=== PATIENT | female | born 1995 | race Caucasian/White ===

== ENCOUNTER 2020-05-09 20:21 | Emergency (ER) | payer BC ==
[~2020-05-09] VITALS: Ht 154.9 cm; Wt 70.0 kg
[2020-05-09 20:38] VITALS: BP 123/58
[2020-05-09] MEDS ORDERED: TRAM-48 PO (20:50)
[2020-05-09] MEDS ORDERED: CLIN150C15 PO (20:50)
--- NOTE | 2020-05-09 20:51 | PHYS DOC ---
General Adult EDM: Chief Complaint: DENTAL PROBLEM HPI: HPI: Patient is a 25 year old female with medical history of GERD presents with a chief complaint of dental pain. Patient states she has had dental pain right upper canine for approximately 2 weeks. Pain intensified yesterday and has become more constant. Patient previously evaluated by dentist was advised she needs root canal. Patient was previously placed on amoxicillin but could not finish due to upset stomach. Patient states she has a dentist appointment next week. Prior to arrival patient states she took Tylenol with no relief. Denies associated symptoms include headache. Patient is afebrile. Review of Systems: Review of Systems: Constitutional: Denies fever or chills. [] Eyes: Denies change in visual acuity. [] HENT: Denies nasal congestion or sore throat. [Positive dental pain] Respiratory: Denies cough or shortness of breath. [] Cardiovascular: Denies chest pain or edema. [] GI: Denies abdominal pain, nausea, vomiting, bloody stools or diarrhea. [] : Denies dysuria. [] Musculoskeletal: Denies back pain or joint pain. [] Integument: Denies rash. [] Neurologic: Denies headache, focal weakness or sensory changes. [] Endocrine: Denies polyuria or polydipsia. [] Lymphatic: Denies swollen glands. [] Psychiatric: Denies depression or anxiety. [] Heart Score: Risk Factors: Risk Factors: DM, Current or recent (<one month) smoker, HTN, HLP, family history of CAD, obesity. Risk Scores: Score 0 - 3: 2.5% MACE over next 6 weeks - Discharge Home Score 4 - 6: 20.3% MACE over next 6 weeks - Admit for Clinical Observation Score 7 - 10: 72.7% MACE over next 6 weeks - Early Invasive Strategies Physical Exam: PE: Constitutional: Well developed, well nourished, no acute distress, non-toxic appearance. [] HENT: Normocephalic, atraumatic, bilateral external ears normal, oropharynx moist, no oral exudates, nose normal. [Dental carry tooth decay tooth #9, no surround swelling or abscess] Eyes: PERRLA, EOMI, conjunctiva normal, no discharge. [] Neck: Normal range of motion, no tenderness, supple, no stridor. [] Cardiovascular:Heart rate regular rhythm, no murmur [] Lungs & Thorax: Bilateral breath sounds clear to auscultation [] Abdomen: Bowel sounds normal, soft, no tenderness, no masses, no pulsatile masses. [] Skin: Warm, dry, no erythema, no rash. [] Back: No tenderness, no CVA tenderness. [] Extremities: No tenderness, no cyanosis, no clubbing, ROM intact, no edema. [] Neurologic: Alert and oriented X 3, normal motor function, normal sensory function, no focal deficits noted. [] Psychologic: Affect normal, judgement normal, mood normal. [] EKG: EKG: [] Radiology/Procedures: Radiology/Procedures: [] Course & Med Decision Making: Course & Med Decision Making Pertinent Labs and Imaging studies reviewed. (See chart for details) [] Patient was evaluated for chief complaint based upon history of present illness and physical exam no emergent work-up indicated at this time. Patient treated with Ultram.----Patient discharged home with prescription Ultram and clindamycin. Patient advised to follow-up with her dentist as scheduled. Blas Disclaimer: Blas Disclaimer: This electronic medical record was generated, in whole or in part, using a voice recognition dictation system. Departure Departure Impression: Primary Impression: Pain, dental Disposition: 01 DC HOME SELF CARE/HOMELESS Condition: STABLE Patient Instructions: Dental Pain Scripts Tramadol Hcl (ULTRAM) 50 Mg Tablet 1 TAB PO PRN Q6HRS PRN for pain MDD 4 Tablet(s) for 7 Days, #28 TAB 0 Refills Prov: AMBREEN CLAYTON DO 05/09/20 Clindamycin Hcl (CLINDAMYCIN HCL) 150 Mg Capsule 450 MG PO QID for 10 Days, #120 CAP Prov: AMBREEN CLAYTON DO 05/09/20 AMBREEN CLAYTON DO May 09, 2020 20:51
[2020-05-09] MEDS ORDERED: traMADol 50 MG TABLET ONE (20:56)
[2020-05-09] MEDS ORDERED: traMADol 50 MG TABLET PO ONE (21:30)
== END 2020-05-09 21:03 | disposition home or self-care (01) ==
LOC: ER 20:21
DX: K08.89 Other specified disorders of teeth and supporting structures (principal); K30 Functional dyspepsia; K21.9 Gastro-esophageal reflux disease without esophagitis
CPT/HCPCS: 99283